=== PATIENT | male | born 1985 | race Caucasian/White ===

== ENCOUNTER 2018-09-13 19:56 | Emergency (ER) | payer MEDICAID ==
[2018-09-13] MEDS ORDERED: Ondansetron 8 MG Tab.DIS PO ONE (21:04)
[2018-09-13] MEDS ORDERED: Ketorolac 60 MG/2 ML SDV IM ONE (21:04)
--- NOTE | 2018-09-13 22:52 | EDM.PDOC ---
ED HPI GENERAL MEDICAL PROBLEM - General Chief Complaint: Head Injury Stated Complaint: HEADACHE Time Seen by Provider: 09/13/18 19:56 Source of Information: Reports: Patient History Limitations: Reports: No Limitations - History of Present Illness INITIAL COMMENTS - FREE TEXT/NARRATIVE: 33 y.o.w.m came to the ED 1 day after he hit his right side of his head. Pt was vomiting yesterday, but those symptoms all subsided. Pt felt a lump behind his right ear/mastoid. No N/V/D dizziness. Pt felt nauseated, did not take anything for pain. No other acute medical issues. BP 119/78 RR 18 Pulse ox 100% Temp 37.1 Pulse 83 Onset Date: 09/12/18 Onset Time: 20:00 Duration: Day(s):, Constant, Intermittent Location: Reports: Head Quality: Reports: Ache, Burning, Dull Severity: Mild Improves with: Reports: Cold Therapy, Rest Worsens with: Reports: Movement Context: Reports: Trauma (hit head last night) Associated Symptoms: Reports: No Other Symptoms - Related Data Allergies Allergy/AdvReac Type Severity Reaction Status Date / Time Penicillins Allergy Hives Verified 09/13/18 21:13 Home Meds: Home Meds NK [No Known Home Meds] 09/13/18 [History] ED ROS GENERAL - Review of Systems Review Of Systems: See Below Constitutional: Reports: No Symptoms HEENT: Reports: No Symptoms Respiratory: Reports: No Symptoms Cardiovascular: Reports: No Symptoms Endocrine: Reports: No Symptoms GI/Abdominal: Reports: No Symptoms : Reports: No Symptoms Musculoskeletal: Reports: No Symptoms Skin: Reports: No Symptoms Neurological: Reports: Headache Psychiatric: Reports: No Symptoms Hematologic/Lymphatic: Reports: No Symptoms Immunologic: Reports: No Symptoms ED EXAM, HEAD INJURY - Physical Exam Exam: See Below Exam Limited By: No Limitations General Appearance: Alert, WD/WN, Mild Distress Head: Scalp Hematoma, Scalp Tenderness Eyes: Bilateral Eye: Normal Inspection Ears: Normal External Exam, Normal Canal Nose: Normal Inspection, Normal Mucousa, No Blood Throat/Mouth: Normal Inspection, Normal Lips, Normal Teeth, Normal Gums, Normal Voice, No Airway Compromise Neck: Paraspinous Muscle Tender, Tenderness (post auricular) Respiratory: No Respiratory Distress, Lungs Clear, Normal Breath Sounds, No Accessory Muscle Use, Chest Non-Tender Cardiovascular: Normal Peripheral Pulses, Regular Rate, Rhythm, No Edema, No Gallop, No Murmur, No Rub GI/Abdominal Exam: Normal Bowel Sounds, Soft, Non-Tender, No Organomegaly, No Distention, No Abnormal Bruit (Male) Exam: Deferred Rectal (Males) Exam: Deferred Back Exam: Normal Inspection, Full Range of Motion Extremities: Normal Inspection, Normal Range of Motion, Non-Tender, No Pedal Edema Neurologic: nursing student II-XII nml As Tested, No Motor/Sensory Deficits, Normal Mood/ Affect, Oriented x 3 Skin: Normal Color, Warm/Dry Course - Vital Signs Text/Narrative:: 33 y.o.w.m came to the ED 1 day after he hit his right side of his head. Pt was vomiting yesterday, but those symptoms all subsided. Pt felt a lump behind his right ear/mastoid. No N/V/D dizziness. Pt felt nauseated, did not take anything for pain. No other acute medical issues. BP 119/78 RR 18 Pulse ox 100% Temp 37.1 Pulse 83 PE: WNWD W M withy a tender lumb behind his right ear 2x2 inches, closed Imaging: CT head: Results are pending. Impression: Head injury/Trauma Tx: Toradol, Zofran Reexam: Improved Plan: Pt wants to sign out AMA because he [place] does not want to wait for the CT head results to come back 09/14/2018 6 am: Pt was informed, through his parents, by phone about the CT head results: No acute findings Last Recorded V/S: Last Vital Signs Temp 36.9 C 09/13/18 22:52 Pulse 89 09/13/18 22:52 Resp 16 09/13/18 22:52 BP 118/78 09/13/18 22:52 Pulse Ox 99 09/13/18 22:52 - Orders/Labs/Meds Meds: Medications Discontinued Medications Generic Name Dose Route Start Last Admin Trade Name Terry PRN Reason Stop Dose Admin Ketorolac Tromethamine 60 mg 09/13/18 21:04 09/13/18 21:09 Toradol IM 09/13/18 21:05 60 mg ONETIME ONE Administration Ondansetron HCl 8 mg 09/13/18 21:04 09/13/18 21:09 Zofran Odt PO 09/13/18 21:05 8 mg ONETIME ONE Administration Departure - Departure Time of Disposition: 23:05 Disposition: Against Medical Advice 07 Condition: Good Clinical Impression: Head injury due to trauma Qualifiers: Encounter type: initial encounter Qualified Code(s): S09.90XA - Unspecified injury of head, initial encounter - Discharge Information Referrals: PCP,None [Primary Care Provider] - Forms: ED Department Discharge
== END 2018-09-13 23:04 | disposition left against medical advice (07) ==
LOC: FB.ED 19:56
DX: S09.90XA Unspecified injury of head, initial encounter (principal); Z88.0 Allergy status to penicillin; W22.8XXA Striking against or struck by other objects, initial encounter
CPT/HCPCS: 70450; 96372; 99284; A9270; J1885